=== PATIENT | female | born 1950 | race Caucasian/White ===

== ENCOUNTER → 2016-12-28 | Outpatient (CLI) | payer OTHER ==
--- NOTE | 2016-12-29 14:06 | DI ---
BILATERAL ULTRASOUND OF THE SUPRACLAVICULAR FOSSAE, 12/28/2016 10:53 AM: Clinical History: Right supraclavicular lymphadenopathy. Previous Exam: None at this facility. High resolution linear array scans are performed in multiple projections through both supraclavicular fossae. Color Doppler ultrasound was also performed. There is a single normal appearing lymph node in the left supraclavicular fossa and this site is used as a control. Scans of the right side show multiple similar lymph nodes that are all normal in size and appearance. No soft tissue mass or cystic lesion is identified. Readin. Scans of both supraclavicular fossae show no pathologic lymphadenopathy. Only normal size and nor mal-appearing lymph nodes are visualized. 2. No solid or cystic lesion is identified on either side.
== END ==
LOC: US 10:42
PROVIDERS: ATTEND Student in an Organized Health Care Education/Training Program
DX: R59.0 Localized enlarged lymph nodes (principal)
CPT/HCPCS: 76536

== ENCOUNTER → 2017-01-10 | Outpatient (CLI) | payer OTHER ==
[2017-01-10 11:22] LABS: BASOPHILS # (AUTO) 0.05 10*3/UL; BASOPHILS % (AUTO) 0.6 % (0-1); HEMATOCRIT 40.2 % (37.0-47.0); HEMOGLOBIN 13.1 g/dL (12.0-16.0); IMM GRAN % (AUTO) 0.1 % (0-5); IMM GRAN# (AUTO) 0.01 10*3/UL; LYMPHOCYTES # (AUTO) 2.48 10*3/uL; LYMPHOCYTES % (AUTO) 30.4 % (10-50); MEAN CORPUSCULAR HEMOGLOBIN 27.8 PG (27-31); MEAN CORPUSCULAR HGB CONC 32.6 g/dL (33-37); MEAN PLATELET VOLUME 9.4 FL (7.4-12.2); MONOCYTES # (AUTO) 0.47 10*3/UL (0.3-0.8); MONOCYTES % (AUTO) 5.8 % (5-15); NEUTROPHILS # (AUTO) 5.06 10*3/UL; NEUTROPHILS % (AUTO) 62.1 % (50-80); RDW COEFFICIENT OF VARIATION 13.7 % (11.5-14.5); RED BLOOD COUNT 4.71 10^6/uL (4.20-5.40); WHITE BLOOD COUNT 8.15 10^3/uL (4.8-10.8)
[2017-01-10 11:27] LABS: PLATELET MORPHOLOGY COMMENT NORMAL MORPHOLOGY (NORM)
[2017-01-10 11:48] LABS: BLOOD UREA NITROGEN 12 mg/dL (7-22); CALCIUM 9.4 mg/dL (8.7-10.7); CHLORIDE 105 meq/L (98-112); CREATININE 0.8 mg/dL (0.50-1.20); EST GLOMERULAR FILTRATION > 60 (>60 ml/min/1.73m(2)); GLUCOSE 89 mg/dL (78-110); SODIUM 142 meq/L (135-145)
--- NOTE | 2017-01-10 14:06 | DI ---
CT SOFT TISSUE NECK W/CONTRAST,01/10/2017 11:00 AM: Clinical History: Supraclavicular lymphadenopathy. Previous Exam: Ultrasound soft tissue performed December 28, 2016 Findings: [address] images are obtained through the neck following the intravenous admin istration of 75 cc of Isovue 300. There are a few small supraclavicular lymph nodes. The most prominent are within the left supraclavic ular region. There are hypodensities within the thyroid. There are some coarse calcifications within the right thy roid lobe. There is no abscess. There is no cervical lymphadenopathy. The base of the skull is unremarkable. The parapharyngeal fat is normal and symmetric. Intraorbital structures and paranasal sinuses are unremarkable. Mild degenerative changes of the cervical spine are seen. There is no mediastinal lymphadenopathy. The visualized portions of the [place] are unremarkable. There are degenerative changes noted of the cervical spine with near complete loss of intervertebral disc height at the C5/6 level. Visualized portions of the esophagus are unremarkable. Impression: 1. Small left supraclavicular lymph nodes anteriorly. 2. Hypodense lesions of the thyroid gland with coarse calcification involving the right thyroid lobe. Recommend ultrasound of the thyroid for further evaluation.
== END ==
LOC: CT 10:57
PROVIDERS: ATTEND Student in an Organized Health Care Education/Training Program
DX: R59.0 Localized enlarged lymph nodes (principal); R93.8 Abnormal findings on diagnostic imaging of other specified body structures
CPT/HCPCS: 36415; 70491; 80048; 84443; 85025

== ENCOUNTER → 2017-01-14 | Outpatient (CLI) | payer OTHER ==
--- NOTE | 2017-01-14 11:20 | DI ---
US SOFT TISSUE HEAD/NECK,01/14/2017 10:01 AM: Clinical History: Abnormal CT scan of the neck Previous Exam: None at this facility. Findings: Multiple grayscale and color Doppler sonographic images are obtained through the thyroid, and demonst rate homogeneous thyroid echotexture. The right thyroid lobe measured 4.0 x 1.2 x 1.4 cm and contain a macrolobulated heterogeneously hypoechoic mass measuring 1.5 x 0.7 x 0.7 cm. The left thyroid lobe in its entirety measured 4.3 x 1.4 x 1.4 cm also with homogeneous echotexture b ut containing a heterogeneously isoechoic mass measuring 1.7 x 0.7 x 0.9 cm. There is also a smaller hypoechoic solid mass within the inferior portion of the left lobe of the thy roid measuring 1.3 x 0.7 x 0.9 cm. There are no cystic masses. Impression: 1. 3 solid masses within the thyroid one on the right measuring 1.5 x 0.7 x 0.7 cm while the left nancy suring 1.7 x 0.7 x 0.9 cm and another on the left measuring 1.3 x 0.7 x 0.9 cm. This could be managed with yearly followup or fine needle aspiration of the 3 nodules.
--- NOTE | 2017-01-14 11:29 | DI ---
CT CHEST W/CONTRAST,01/14/2017 10:01 AM: Clinical History: Supraclavicular lymphadenopathy. Previous Exam: None at this facility. Findings: Multiple helically acquired CT images are obtained through the chest with IV contrast, and demonstrat e clear lungs. There is some scarring within the lung apices. Visualized portions of the carotids are unremarkable. The thyroid is slightly heterogeneous as descri bed on the CT of the neck. There are 2 small 6 mm lymph nodes noted within the left supraclavicular region both of which contain fatty jacqueline. There is no mediastinal lymphadenopathy. Coronary arteries are unremarkable. Visualized portions of the liver demonstrate a 2.2 cm simple cyst within the medial segment of the le ft lobe of the liver. There is no infiltrate nor effusion. The aorta is unremarkable. Skeletal structures are also unremarkable. Impression: 1. No evidence of pulmonary mass. 2. Small 6 mm lymph nodes within the left supraclavicular region are most consistent with a benign pr ocess.
== END ==
LOC: US 09:56
PROVIDERS: ATTEND Student in an Organized Health Care Education/Training Program
DX: R59.0 Localized enlarged lymph nodes (principal); R93.8 Abnormal findings on diagnostic imaging of other specified body structures
CPT/HCPCS: 71260